=== PATIENT | male | born 1990 | race Caucasian/White ===

== ENCOUNTER 2024-02-04 23:25 | Emergency (ER) | payer MEDICAID, SELFPAY ==
[2024-02-04 23:26] VITALS: BMI 47.9
[2024-02-04 23:31] VITALS: BP 142/92; PULSE 99; RESP 18; TEMP 37.5; O2SAT 99
[2024-02-04] MEDS: KETOROLAC INJ 60 MG/2 ML VIAL IM (23:48)
[2024-02-04] MEDS: AMOXICILLIN/POT CLAV 875 TABLET 1 TAB PO (23:48)
--- NOTE | 2024-02-05 00:04 | EDNOTE_ITS ---
ED Dental RME/HPI General Chief complaint: Dental/Oral/Throat Stated complaint: SWELLING TO LEFT SIDE OF FACE, TOOTH PAIN Time Seen by Provider: 02/04/24 23:35 Arrival date/time: 02/04/24 23:25 33M with history of Asperger's presents to ED with mom for several days of L upper dental pain and L facial/cheek swelling. Patient does not go to dentist regularly, but has an appt in a few days. Limitations: no limitations Related Data Home Medications ?Medication ?Instructions ?Recorded ?Confirmed albuterol sulfate 90 mcg/actuation 2 inh inhalation Q6H PRN Cough 01/29/22 01/29/22 aerosol inhaler atorvastatin 40 mg tablet 40 mg PO HS 01/29/22 01/29/22 docusate sodium 100 mg capsule 200 mg PO QDAY PRN Constipation 01/29/22 01/29/22 pantoprazole 40 mg tablet,delayed 40 mg PO QDAY 01/29/22 01/29/22 release Previous Rx's ?Medication ?Instructions ?Recorded amoxicillin 875 mg-potassium 1 tab PO BID 10 days #20 tabs 02/04/24 clavulanate 125 mg tablet Allergies Allergy/AdvReac Type Severity Reaction Status Date / Time No Known Allergies Allergy Verified 01/29/22 03:15 Review of Systems Review of Systems Systems Reviewed: All systems reviewed, normal except as documented Constitutional Constitutional: Reports system reviewed and no additional complaints, except as documented, Denies fever(s) and Denies headache(s) ENT Ears, Nose, Mouth, and Throat: Reports as per HPI, Reports dental pain, Denies disequilibrium and Denies headache(s) Cardiovascular Cardiovascular: Reports system reviewed and no additional complaints, except as documented, Denies chest pain and Denies dyspnea Respiratory Respiratory: Reports system reviewed and no additional complaints, except as documented, Denies cough and Denies dyspnea Gastrointestinal Gastrointestinal: Reports system reviewed and no additional complaints, except as documented, Denies abdominal pain, Denies nausea and Denies vomiting Neurologic Neurologic: Reports system reviewed and no additional complaints, except as documented, Denies confusion, Denies disequilibrium and Denies headache(s) Psychiatric Psychiatric: Denies confusion Past Medical History Past Medical History CARDIAC: Negative Cardiac Disorders or Congestive Heart Failure RESPIRATORY: Negative Chronic Obstructive Pulmonary Disease (COPD) or Asthma GENITOURINARY: Negative Renal Disease ENDOCRINE: Negative Diabetes Mellitus Type 1 or Diabetes Mellitus Type 2 HEMATOLOGIC: Negative Sickle Cell Disease Social History SMOKING STATUS: Never smoker ED Exam General Limitations: Present no limitations General appearance: Present alert and in no apparent distress Head Head exam: Present atraumatic Eye Eye exam: Present normal appearance, PERRL and EOMI ENT ENT exam: Present mucous membranes moist Expanded ENT Exam External ear exam: Present other (L cheek/facial swelling) Teeth exam: Present gingival swelling Neck Neck exam: Present normal inspection, full ROM and trachea midline Chest Chest inspection: Present normal inspection and symmetric chest wall rise Respiratory Respiratory exam: Present normal lung sounds bilaterally Cardiovascular Cardiovascular exam: Present regular rate, normal rhythm and normal heart sounds Abdominal Exam Abdominal exam: Present soft and normal bowel sounds Extremities Exam Extremities exam: Present normal inspection and full ROM Back Exam Back exam: Present normal inspection and full ROM Neurological Exam Neurological exam: Present alert, oriented X3 and CN II-XII intact Psychiatric Psychiatric exam: Present normal affect and normal mood Skin Skin exam: Present warm, dry, intact and normal color Course Quality Measures none Orders Category Date Time Status Amoxicillin/Pot Clav 875 [Augmentin 875] Med 02/04/24 23:35 Discontinued 1 tab PO X1 ONE Ketorolac Inj [Toradol Inj] Med 02/04/24 23:35 Discontinued 60 mg IM X1 ONE Vital Signs Vital signs: Vital Signs Temperature 99.5 F 02/04/24 23:31 Pulse Rate 99 02/04/24 23:31 Respiratory Rate 18 02/04/24 23:31 Blood Pressure 142/92 H 02/04/24 23:31 Pulse Oximetry (%) 99 02/04/24 23:31 Oxygen Delivery Method Room Air 02/04/24 23:31 O2 at 99% on RA and WNLs Dental / Oral MDM Narrative MDM Narrative:: 33M with history of Asperger's presents to ED with mom for several days of L upper dental pain and L facial/cheek swelling. Patient does not go to dentist regularly, but has an appt in a few days. Physical exam reveals some gingival swelling and mild L facial/cheek swelling. Patient is afebrile, calm, and alert. Meds and certified drug counselor given. Patient data External records reviewed:: [facility] previous records Clinical information provided by:: patient and parent Social determinants that could affect healthcare access:: none Patient has the following chronic illnesses:: Asperger's How is presenting disease/condition affected by chronic disease/condition?: exacerbated by Evaluation data The following diagnostics were reviewed and interpreted by me:: other (specify) (none) Lab and/or radiology exams considered but not ordered:: not ordered Interpretation Summary: n/a Medications / Prescriptions Medications or Prescriptions considered but not ordered:: ordered Medication administrations:: Medication Administration History Discontinued Medications Amoxicillin/Clavulanate Potassium (Amoxicillin/Pot Clav 875 Tablet) 1 tab PO X1 ONE Stop: 02/04/24 23:36 Last Admin: 02/04/24 23:48 Dose: 1 tab Documented By: KATHIA Ketorolac Tromethamine (Ketorolac Inj 60 Mg/2 Ml Vial) 60 mg IM X1 ONE Stop: 02/04/24 23:36 Last Admin: 02/04/24 23:48 Dose: 60 mg Documented By: KATHIA above Consultations Consultation(s) initiated? (list below): No Diagnosis Dental Differential Diagnosis: gingival abscess, dental caries, toothache, dental abscess, fracture of tooth and aphthous ulcer Most likely diagnosis given after review of the tests above:: dental abscess Admission Indicated Admission indicated?: not indicated Admission Request Was there a request for admission?: No Disposition Plan Disposition Plan: Discharge Discharge Attestation Discharge Attestation: The patient and all family members were given an opportunity to ask questions and understood the discharge instructions. Discharge instructions specifically effects, indications for sooner follow up or return to the emergency department, and the expected course of current diagnosis. Patient condition: Stable Discharge Plan Plan Patient Disposition: HOME (Self Care) Disposition Comment: Stable Prescriptions/Referrals Prescriptions/Med Rec: New amoxicillin-pot clavulanate 875-125 mg tablet 1 tab PO BID 10 Days Qty: 20 0RF No Action atorvastatin 40 mg tablet 40 mg PO HS pantoprazole 40 mg tablet,delayed release (DR/EC) 40 mg PO QDAY Patient Comments: TAKE 1 TABLET BY MOUTH 30 MINUTES BEFORE MEALS, EVERY DAY FOR STOMACH docusate sodium 100 mg capsule 200 mg PO QDAY PRN (Reason: Constipation) Patient Comments: TAKE 2 CAPSULES BY MOUTH EVERY DAY NEEDED FOR CONSTIPATION albuterol sulfate 90 mcg/actuation HFA aerosol inhaler 2 inh INHALATION Q6H PRN (Reason: Cough) Patient Comments: TAKE 2 PUFFS BY MOUTH EVERY 4 TO 6 HOURS NEEDED FOR SHORTNESS OF BREATH Problem List Clinical Impression: Dental abscess Patient/Caregiver Discharge Instructions Additional Instructions: Please follow-up with PCP within 24-48 hours and return immediately if symptoms worsen. See dentist soon. Print Language: Estonian Stand Alone Forms: Patient Portal Info Letter PA/RETURN TO FACTORY CLERK Supervising Physician PA/RETURN TO FACTORY CLERK Supervising Physician: Dr. Pal
== END 2024-02-04 23:53 | disposition home or self-care (01) ==
LOC: SERX 02-05 03:03
PROVIDERS: Emergency Provider Emergency Medicine; PCP Physician Assistant
DX: K04.7 Periapical abscess without sinus (principal)
CPT/HCPCS: 96372; 99283; J1885; A9270